=== PATIENT | male | born 1985 | race Caucasian/White ===

== ENCOUNTER 2023-12-13 05:07 | Emergency (ER) | payer BC ==
[~2023-12-13] VITALS: Ht 180.3 cm; Wt 90.9 kg
[2023-12-13 05:15] VITALS: TEMP 99
[2023-12-13] MEDS ORDERED: AZIT250T9 PO (06:58)
[2023-12-13 07:21] VITALS: BP 151/70; PULSE 95; RESP 18; O2SAT 97
[2023-12-13] MEDS: LIDOCAINE 1% 10 ML VIAL SQ ONE (07:28)
[2023-12-13] MEDS: BACITRACIN 0.9 GM PACKET OINTMENT TP ONE (07:28)
== END 2023-12-13 07:30 | disposition home or self-care (01) ==
LOC: EMS 05:09
DX: S01.511A Laceration without foreign body of lip, initial encounter (principal); W55.01XA Bitten by cat, initial encounter; Y93.89 Activity, other specified; Y92.89 Other specified places as the place of occurrence of the external cause; Y99.8 Other external cause status
CPT/HCPCS: 99283; 12011; J3490